=== PATIENT | female | born 1955 | race Caucasian/White ===

== ENCOUNTER 2018-12-25 17:29 | Emergency (ER) | payer OTHER, MEDICARE ==
[~2018-12-25] VITALS: Ht 157.5 cm; Wt 85.3 kg
[2018-12-25] MEDS ORDERED: SODIUM CHLORIDE 0.9% 1000ML 1,000 ML IV STA (17:36)
[2018-12-25 18:16] LABS: BASOPHILS % 0.5 % (0.0-1.0); BILIRUBIN,URINE NEGATIVE (NEGATIVE); CLARITY,URINE CLEAR (CLEAR); COLOR,URINE YELLOW (YELLOW); EOSINOPHILS # (AUTO) 0.2 (0.0-0.4); EOSINOPHILS % 2.8 % (0.0-6.0); HEMATOCRIT 34.5 % (34.2-44.1); HEMOGLOBIN 11.1 g/dL (12.0-16.0); KETONES,URINE NEGATIVE (NEGATIVE); LEUKOCYTE ESTERASE ,URINE SMALL (NEGATIVE); LYMPHOCYTES # (AUTO) 2.2 (1.0-3.2); LYMPHOCYTES % 29.1 % (18.0-39.1); MEAN CORPUSCULAR HEMOGLOBIN 28.4 pg (28-32); MEAN CORPUSCULAR HGB CONC 32.2 g/dL (31-35); MEAN CORPUSCULAR VOLUME 88.2 fL (81-99); MONOCYTES # (AUTO) 0.7 (0.2-0.8); MONOCYTES % 8.8 % (4.4-11.3); NEUTROPHILS # (AUTO) 4.3 (2.1-6.9); NEUTROPHILS % 58.4 % (38.7-80.0); NITRITE,URINE NEGATIVE (NEGATIVE); PLATELET COUNT 342 x10e3/uL (140-360); PROTEIN,URINE DIPSTICK NEGATIVE (NEGATIVE); RED BLOOD COUNT 3.91 x10e6/uL (3.6-5.1); RED CELL DISTRIBUTION WIDTH 13.7 % (11.7-14.4); URINE UROBILINOGEN 0.2 mg/dL (0.2 - 1)
[2018-12-25 18:20] LABS: AMPHETAMINES SCREEN,URINE NEGATIVE (NEGATIVE); BENZODIAZEPINES SCREEN,URINE POSITIVE (NEGATIVE); PHENCYCLIDINE SCREEN,URINE NEGATIVE (NEGATIVE)
[2018-12-25 18:34] LABS: ALANINE AMINOTRANSFERASE 14 IU/L (0-55); ALBUMIN 3.5 g/dL (3.5-5.0); ALBUMIN/GLOBULIN RATIO 0.8 (0.8-2.0); ALKALINE PHOSPHATASE 99 IU/L (40-150); ANION GAP 13.1 mmol/L (8-16); BACTERIA,URINE RARE /HPF; BLOOD UREA NITROGEN 15 mg/dL (7-26); BUN/CREATININE RATIO 17 (6-25); CALCIUM 9.2 mg/dL (8.4-10.2); CARBON DIOXIDE 28 mmol/L (22-29); CHLORIDE 101 mmol/L (98-107); CREATINE KINASE 44 IU/L (29-168); CREATININE, SERUM 0.87 mg/dL (0.57-1.11); EPITHELIAL CELLS,URINE FEW /LPF; EST GLOMERULAR FILTRATION RATE > 60 ML/MIN (60-); GLUCOSE 98 mg/dL (74-118); MAGNESIUM 1.6 MG/DL (1.3-2.1); POTASSIUM 4.1 mmol/L (3.5-5.1); RBC,URINE 0-5 /HPF (0-5); SODIUM 138 mmol/L (136-145)
--- NOTE | 2018-12-25 18:35 | Diagnostic Imaging Report ---
EXAMINATION: CHEST SINGLE (NOT PORTABLE) INDICATION: Chest pain ^Chest pain, look for CHF, enlarge Mediastinum ^[id number] ^[id number] COMPARISON: None FINDINGS: TUBES and LINES: None. LUNGS: Lungs are well inflated. Lungs are clear. There is no evidence of pneumonia or pulmonary edema. PLEURA: No pleural effusion or pneumothorax. HEART AND MEDIASTINUM: The cardiomediastinal silhouette is unremarkable. BONES AND SOFT TISSUES: No acute osseous lesion. Soft tissues are unremarkable. UPPER ABDOMEN: No free air under the diaphragm. IMPRESSION: No acute thoracic abnormality. Signed by: Dr. Mukund Broussard M.D. on 12/25/2018 6:32 PM
--- NOTE | 2018-12-25 20:08 | Diagnostic Imaging Report ---
Study made available for interpretation on 12/25/2018 at 8:00 PM. EXAMINATION: Head CT without contrast. HISTORY: Ear ringing, imbalance COMPARISON STUDIES:None Technique: Axial images were obtained from the skull base to the vertex. Coronal and sagittal images reconstructed from the axial data. Dose modulation, iterative reconstruction, and/or weight based adjustment of the mA/kV was utilized to reduce the radiation dose to as low as reasonably achievable. Findings: Scalp/skull: No abnormalities. Incidentally noted benign hemangioma in the right superior parietal bone. Extra-axial spaces: No masses. No fluid collections. Brain sulci: Mildly prominent. Ventricles: Mildly prominent but no hydrocephalus. Parenchyma: No abnormal densities.. No masses, hemorrhage, acute or chronic cortical vascular insults. Sellar/suprasellar region: No abnormalities. Craniocervical junction: Patent foramen magnum. No Chiari one malformation. Incidental findings: Atherosclerotic calcifications in the carotid siphons . Impression: 1. No acute abnormalities. 2. Mild age-related generalized volume loss. Signed by: Dr. Latrice Coronel M.D. on 12/25/2018 8:04 PM
[2018-12-25 20:24] LABS: ACETAMINOPHEN < 3 ug/mL (10-30); SALICYLATE < 5.0 mg/dL (0-30)
[2018-12-25 21:09] LABS: FREE THYROXINE INDEX 2.3842 (1.4-3.8); THYROID STIMULATING HORMONE 1.689 uIU/mL (0.350-4.940)
--- NOTE | 2018-12-25 21:26 | NUR ---
MAT TEAM CALLED - WAITING FOR CALL BACK
--- NOTE | 2018-12-25 22:03 | NUR ---
MAT TEAM CALLED BACK - ETA 45 MIN
--- NOTE | 2018-12-25 23:02 | NUR ---
MAT TEAM HERE FOR EVAL
[2018-12-25] MEDS ORDERED: NITROFURANTOIN MACROCRYSTALS 100 MG CAP PO ONE (23:30)
--- NOTE | 2018-12-26 01:58 | NUR ---
[facility] CALLED FOR INITIATION OF TRANSPORT. ETA 30-45 MINUTES.
[2018-12-26] MEDS ORDERED: IBUPROFEN 400 MG TAB PO ONE (03:00)
[2018-12-26] MEDS ORDERED: LORAZEPAM 1 MG TAB PO ONE (03:15)
== END 2018-12-26 04:56 ==
LOC: ER 17:29
DX: F32.3 Major depressive disorder, single episode, severe with psychotic features (principal); F13.151 Sedative, hypnotic or anxiolytic abuse with sedative, hypnotic or anxiolytic-induced psychotic disorder with hallucinations
CPT/HCPCS: 36415; 70450; 71045; 80053; 80307; 80320; 80329 ×2; 81001; 82550; 82553; 83735; 84436; 84443; 84479; 84484; 85025; 93005; 99284; J7030

== ENCOUNTER 2024-10-19 09:34 | Inpatient (IN) | payer MEDICARE, OTHER ==
[2024-10-19] VITALS (8 sets, daily range): BP systolic 115–131; BP diastolic 44–83; PULSE 57–79; RESP 16–18; TEMP 97.7–98.4; O2SAT 98–100
[~2024-10-19] VITALS: Ht 160 cm; Wt 75.8 kg
[2024-10-19 11:08] LABS: BASOPHILS # (AUTO) 0.1 (0.0-0.1); BASOPHILS % 0.4 % (0.0-1.0); EOSINOPHILS # (AUTO) 0.6 (0.0-0.4); HEMATOCRIT 29.2 % (34.2-44.1); HEMOGLOBIN 8.8 g/dL (12.0-16.0); LYMPHOCYTES # (AUTO) 1.3 (1.0-3.2); LYMPHOCYTES % 9.3 % (18.0-39.1); MEAN CORPUSCULAR HEMOGLOBIN 26.7 pg (28-32); MEAN CORPUSCULAR HGB CONC 30.1 g/dL (31-35); MEAN CORPUSCULAR VOLUME 88.5 fL (81-99); MONOCYTES # (AUTO) 1.4 (0.2-0.8); MONOCYTES % 10.1 % (4.4-11.3); NEUTROPHILS # (AUTO) 10.1 (2.1-6.9); NEUTROPHILS % 74.6 % (38.7-80.0); PLATELET COUNT 419 x10e3/uL (140-360); RED CELL DISTRIBUTION WIDTH 18.1 % (11.7-14.4); WHITE BLOOD COUNT 13.59 x10e3/uL (4.8-10.8)
[2024-10-19 11:14] LABS: AMPHETAMINES SCREEN,URINE NEGATIVE (NEGATIVE); BENZODIAZEPINES SCREEN,URINE NEGATIVE (NEGATIVE); CANNABINOIDS SCREEN,URINE NEGATIVE (NEGATIVE); COCAINE SCREEN,URINE NEGATIVE (NEGATIVE); OPIATES SCREEN,URINE NEGATIVE (NEGATIVE); PHENCYCLIDINE SCREEN,URINE NEGATIVE (NEGATIVE)
[2024-10-19 11:15] LABS: METHADONE SCREEN, URINE NEGATIVE (NEGATIVE)
[2024-10-19 11:24] LABS: BACTERIA,URINE MODERATE /HPF; BILIRUBIN,URINE NEGATIVE (NEGATIVE); CLARITY,URINE TURBID (CLEAR); COLOR,URINE YELLOW (YELLOW); EPITHELIAL CELLS,URINE FEW /LPF; GLUCOSE, URINE NEGATIVE (NEGATIVE); KETONES,URINE NEGATIVE (NEGATIVE); LEUKOCYTE ESTERASE ,URINE LARGE (NEGATIVE); NITRITE,URINE NEGATIVE (NEGATIVE); PH,URINE 7 (5 - 7); PROTEIN,URINE DIPSTICK 2+ (NEGATIVE); RBC,URINE >50 /HPF (0-5); URINE UROBILINOGEN 0.2 mg/dL (0.2 - 1); WBC,URINE (MAN) >50 /HPF (0-5)
[2024-10-19 11:28] LABS: ALBUMIN 2.3 g/dL (3.5-5.0); ALBUMIN/GLOBULIN RATIO 0.5 (0.8-2.0); ANION GAP 15.4 mmol/L (8-16); BILIRUBIN,TOTAL 0.2 mg/dL (0.2-1.2); CALCIUM 8.8 mg/dL (8.4-10.2); CREATININE, SERUM 2.6 mg/dL (0.57-1.11)
[2024-10-19 11:29] LABS: POTASSIUM 5.4 mmol/L (3.5-5.1)
[2024-10-19] MEDS: SODIUM CHLORIDE 0.9% 500ML 500 ML IV ONE (11:53)
[2024-10-19] MEDS: Vancomycin IV 1 GM in SODIUM CHLORIDE 0.9% 250ML 250 ML IV ONE (13:11)
[2024-10-19] MEDS ORDERED: SODIUM CHLORIDE 0.9% 1000ML 1,000 ML IV SCH (13:15)
[2024-10-19 13:33] LABS: TROPONIN I 0.011 ng/mL (0-0.300)
[2024-10-19] MEDS ORDERED: OMEPRAZOLE40 MG PO (16:30)
[2024-10-19] MEDS ORDERED: POLYETHYLENE GLYCOL 3350 17 GM PACK PO PRN (16:30)
[2024-10-19] MEDS ORDERED: METOPROLOL TAR100 MG PO (16:30)
[2024-10-19] MEDS ORDERED: LOSARTAN POTASS25 MG PO (16:30)
[2024-10-19] MEDS ORDERED: NAPROSYN500 MG PO (16:30)
[2024-10-19] MEDS ORDERED: NEURONTIN300 MG PO (16:30)
[2024-10-19] MEDS ORDERED: ASPIRIN81 MG PO (16:30)
[2024-10-19] MEDS ORDERED: RISPERIDONE0.5 MG PO (16:30)
[2024-10-19] MEDS: DOCUSATE SODIUM 100 MG CAP PO SCH (17:08)
[2024-10-19] MEDS: SODIUM BICARBONATE 8.4% VIAL 50 ML in SODIUM CHLORIDE 0.45% 1,000 ML IV SCH (17:40)
[2024-10-19] MEDS ORDERED: KETOCONAZOLE15 GM TOP (17:53)
[2024-10-19] MEDS ORDERED: TRIAMCINOLONE A15 G1 TOP (17:53)
[2024-10-19] MEDS ORDERED: ALCLOMETASONE D15 GM TOP (17:53)
[2024-10-19 20:42] LABS: ABG HCO3 18 mmol/L (22-26); ABG PCO2 34 mmHg (35-45); ABG PH 7.32 (7.35-7.45); ABG PO2 147 mmHg (80-105); ABG TCO2 19
[2024-10-19] MEDS: ACETAMINOPHEN 325 MG TAB PO PRN (23:14)
[2024-10-20] VITALS (10 sets, daily range): BP systolic 112–141; BP diastolic 42–58; PULSE 71–79; RESP 15–18; TEMP 98–98.6; O2SAT 96–100
[2024-10-20 06:57] LABS: BASOPHILS % 0.4 % (0.0-1.0); EOSINOPHILS # (AUTO) 0.5 (0.0-0.4); EOSINOPHILS % 4.8 % (0.0-6.0); HEMOGLOBIN 7.7 g/dL (12.0-16.0); LYMPHOCYTES # (AUTO) 1.5 (1.0-3.2); LYMPHOCYTES % 14.8 % (18.0-39.1); MEAN CORPUSCULAR HEMOGLOBIN 26.9 pg (28-32); MEAN CORPUSCULAR HGB CONC 30.8 g/dL (31-35); MEAN CORPUSCULAR VOLUME 87.4 fL (81-99); MONOCYTES # (AUTO) 1.2 (0.2-0.8); MONOCYTES % 11.4 % (4.4-11.3); NEUTROPHILS # (AUTO) 6.8 (2.1-6.9); NEUTROPHILS % 67.4 % (38.7-80.0); PLATELET COUNT 435 x10e3/uL (140-360); RED BLOOD COUNT 2.86 x10e6/uL (3.6-5.1); WHITE BLOOD COUNT 10.08 x10e3/uL (4.8-10.8)
[2024-10-20 07:30] LABS: CHOL/HDL RATIO 3.4 (3.0-3.6)
[2024-10-20 07:32] LABS: ALBUMIN 1.9 g/dL (3.5-5.0); ALBUMIN/GLOBULIN RATIO 0.5 (0.8-2.0); ANION GAP 13.4 mmol/L (8-16); BILIRUBIN,TOTAL 0.2 mg/dL (0.2-1.2); CREATININE, SERUM 2.05 mg/dL (0.57-1.11); TOTAL PROTEIN 5.9 g/dL (6.5-8.1)
[2024-10-20 07:42] LABS: POTASSIUM 5.4 mmol/L (3.5-5.1)
[2024-10-20 07:53] LABS: FREE T4 (FREE THYROXINE) 0.98 ng/dL (0.8-1.8); THYROID STIMULATING HORMONE 3.995 uIU/mL (0.350-4.940)
[2024-10-20 07:54] LABS: FERRITIN 52.89 ng/mL (4.63-204.00)
[2024-10-20] MEDS: KETOCONAZOLE 2% CREAM/15 GM TUBE TOP SCH (09:00)
[2024-10-20] MEDS: ASPIRIN 81 MG CHEW TAB PO SCH (09:05)
[2024-10-20] MEDS: PANTOPRAZOLE SOD 40 MG TABEC PO SCH (09:06)
[2024-10-20] MEDS: TRIAMCINOLONE ACET 0.1% CREAM 15 GM TUBE TOP SCH (09:23)
[2024-10-20] MEDS: ONDANSETRON HCL INJ 2MG/ML 2ML 2 MG/ML VIAL IV PRN (11:28)
[2024-10-20] MEDS: METOPROLOL TARTRATE 50 MG TAB PO SCH (11:29)
[2024-10-20] MEDS: RISPERIDONE 0.5 MG TAB PO SCH (20:32)
[2024-10-21] VITALS (11 sets, daily range): BP systolic 136–149; BP diastolic 54–76; PULSE 75–85; RESP 16–18; TEMP 97.9–98.4; O2SAT 94–98
[2024-10-21] MEDS ORDERED: SODIUM BICARBONATE 8.4% VIAL 50 ML in SODIUM CHLORIDE 0.45% 1,000 ML IV SCH (07:30)
[2024-10-21 07:39] LABS: ANION GAP 15.9 mmol/L (8-16); CALCIUM 8.3 mg/dL (8.4-10.2); CREATININE, SERUM 1.88 mg/dL (0.57-1.11); POTASSIUM 4.9 mmol/L (3.5-5.1)
[2024-10-21] MEDS: SODIUM BICARBONATE 8.4% VIAL 50 ML in SODIUM CHLORIDE 0.45% 1,000 ML IV SCH (10:31)
[2024-10-21 11:31] LABS: ABG HCO3 18 mmol/L (22-26); ABG PCO2 34 mmHg (35-45); ABG PH 7.32 (7.35-7.45); ABG PO2 147 mmHg (80-105); ABG TCO2 19
[2024-10-22] VITALS (10 sets, daily range): BP systolic 111–183; BP diastolic 53–82; PULSE 63–130; RESP 16–20; TEMP 97.8–98.5; O2SAT 96–100
[2024-10-22] MEDS: LACTATED RINGER'S 1,000 ML INJ SCH (04:01)
[2024-10-22 08:12] LABS: BASOPHILS # (AUTO) 0.1 (0.0-0.1); BASOPHILS % 0.5 % (0.0-1.0); EOSINOPHILS # (AUTO) 0.2 (0.0-0.4); EOSINOPHILS % 2.1 % (0.0-6.0); HEMATOCRIT 27.1 % (34.2-44.1); HEMOGLOBIN 8.2 g/dL (12.0-16.0); LYMPHOCYTES # (AUTO) 1.1 (1.0-3.2); LYMPHOCYTES % 10.4 % (18.0-39.1); MEAN CORPUSCULAR HEMOGLOBIN 26.6 pg (28-32); MEAN CORPUSCULAR HGB CONC 30.3 g/dL (31-35); MONOCYTES # (AUTO) 0.8 (0.2-0.8); MONOCYTES % 7.3 % (4.4-11.3); NEUTROPHILS # (AUTO) 8.4 (2.1-6.9); NEUTROPHILS % 78.7 % (38.7-80.0); PLATELET COUNT 377 x10e3/uL (140-360); RED BLOOD COUNT 3.08 x10e6/uL (3.6-5.1); RED CELL DISTRIBUTION WIDTH 17.7 % (11.7-14.4); WHITE BLOOD COUNT 10.72 x10e3/uL (4.8-10.8)
[2024-10-22 08:41] LABS: ANION GAP 18.5 mmol/L (8-16); CALCIUM 8.1 mg/dL (8.4-10.2); CREATININE, SERUM 1.7 mg/dL (0.57-1.11); POTASSIUM 4.5 mmol/L (3.5-5.1)
[2024-10-22] MEDS: FOLIC ACID 1 MG TAB PO SCH (08:51)
[2024-10-22] MEDS: IRON SUCROSE 100 MG in SODIUM CHLORIDE 0.9% 100 ML IV SCH (08:52)
[2024-10-22] MEDS: SODIUM BICARBONATE 650 MG TAB PO SCH (14:22)
[2024-10-22] MEDS: HYDRALAZINE HCL 20 MG/ML VIAL IV PRN (23:14)
[2024-10-23] VITALS (9 sets, daily range): BP systolic 118–142; BP diastolic 47–57; PULSE 90–135; RESP 16–20; TEMP 97.4–98.9; O2SAT 93–100
[2024-10-23 06:24] LABS: BASOPHILS # (AUTO) 0.1 (0.0-0.1); BASOPHILS % 0.4 % (0.0-1.0); EOSINOPHILS % 0.2 % (0.0-6.0); HEMATOCRIT 24.4 % (34.2-44.1); LYMPHOCYTES # (AUTO) 0.7 (1.0-3.2); LYMPHOCYTES % 4.9 % (18.0-39.1); MEAN CORPUSCULAR HEMOGLOBIN 27.1 pg (28-32); MEAN CORPUSCULAR HGB CONC 31.1 g/dL (31-35); MEAN CORPUSCULAR VOLUME 87.1 fL (81-99); MONOCYTES # (AUTO) 0.9 (0.2-0.8); MONOCYTES % 6.4 % (4.4-11.3); NEUTROPHILS # (AUTO) 12.4 (2.1-6.9); NEUTROPHILS % 86.6 % (38.7-80.0); PLATELET COUNT 363 x10e3/uL (140-360); RED CELL DISTRIBUTION WIDTH 17.9 % (11.7-14.4); WHITE BLOOD COUNT 14.33 x10e3/uL (4.8-10.8)
[2024-10-23 06:28] LABS: HEMOGLOBIN 7.6 g/dL (12.0-16.0)
[2024-10-23 06:34] LABS: ANION GAP 20.2 mmol/L (8-16); CALCIUM 7.9 mg/dL (8.4-10.2); CREATININE, SERUM 1.67 mg/dL (0.57-1.11); POTASSIUM 4.2 mmol/L (3.5-5.1)
[2024-10-23] MEDS: SODIUM BICARBONATE 8.4% VIAL 150 ML in DEXTROSE 5% 1,000 ML IV SCH (20:41)
[2024-10-24] VITALS (10 sets, daily range): BP systolic 107–141; BP diastolic 48–67; PULSE 86–128; RESP 17–20; TEMP 97.2–98.4; O2SAT 94–100
[2024-10-24 06:20] LABS: BASOPHILS % 0.3 % (0.0-1.0); EOSINOPHILS # (AUTO) 0.3 (0.0-0.4); EOSINOPHILS % 2.8 % (0.0-6.0); HEMATOCRIT 22.9 % (34.2-44.1); LYMPHOCYTES % 8.6 % (18.0-39.1); MEAN CORPUSCULAR HEMOGLOBIN 27.3 pg (28-32); MEAN CORPUSCULAR HGB CONC 31.4 g/dL (31-35); MEAN CORPUSCULAR VOLUME 86.7 fL (81-99); MONOCYTES # (AUTO) 1.1 (0.2-0.8); MONOCYTES % 9.3 % (4.4-11.3); NEUTROPHILS % 77.9 % (38.7-80.0); PLATELET COUNT 396 x10e3/uL (140-360); RED BLOOD COUNT 2.64 x10e6/uL (3.6-5.1); RED CELL DISTRIBUTION WIDTH 18.2 % (11.7-14.4)
[2024-10-24 06:26] LABS: HEMOGLOBIN 7.2 g/dL (12.0-16.0)
[2024-10-24 06:33] LABS: ANION GAP 12.2 mmol/L (8-16); CALCIUM 7.5 mg/dL (8.4-10.2); CREATININE, SERUM 1.65 mg/dL (0.57-1.11)
[2024-10-24 06:37] LABS: POTASSIUM 3.2 mmol/L (3.5-5.1)
[2024-10-24] MEDS: POTASSIUM CHLORIDE 10MEQ EA PO STA (22:18)
[2024-10-25] MEDS: SODIUM CHLORIDE 0.9% 250ML 250 ML ONE (00:02)
[2024-10-25 03:23] VITALS: BP 141/65; PULSE 98; RESP 18; TEMP 97.5; O2SAT 96
[2024-10-25 05:34] LABS: BASOPHILS # (AUTO) 0.1 (0.0-0.1); BASOPHILS % 0.6 % (0.0-1.0); EOSINOPHILS # (AUTO) 0.3 (0.0-0.4); EOSINOPHILS % 2.3 % (0.0-6.0); HEMATOCRIT 25.7 % (34.2-44.1); LYMPHOCYTES # (AUTO) 1.1 (1.0-3.2); LYMPHOCYTES % 8.7 % (18.0-39.1); MEAN CORPUSCULAR HEMOGLOBIN 26.9 pg (28-32); MEAN CORPUSCULAR HGB CONC 31.1 g/dL (31-35); MEAN CORPUSCULAR VOLUME 86.5 fL (81-99); MONOCYTES # (AUTO) 1.1 (0.2-0.8); MONOCYTES % 8.6 % (4.4-11.3); NEUTROPHILS # (AUTO) 9.6 (2.1-6.9); NEUTROPHILS % 77.9 % (38.7-80.0); PLATELET COUNT 340 x10e3/uL (140-360); RED BLOOD COUNT 2.97 x10e6/uL (3.6-5.1); RED CELL DISTRIBUTION WIDTH 18.6 % (11.7-14.4); WHITE BLOOD COUNT 12.35 x10e3/uL (4.8-10.8)
[2024-10-25 06:15] LABS: ANION GAP 15.5 mmol/L (8-16); CALCIUM 7.7 mg/dL (8.4-10.2); CREATININE, SERUM 1.46 mg/dL (0.57-1.11); POTASSIUM 3.5 mmol/L (3.5-5.1)
[2024-10-25] MEDS ORDERED: PROPOFOL IV EMULSION 10 MG/ML 20 ML VIAL ONE (07:38)
[2024-10-25] MEDS ORDERED: FENTANYL CITRATE/PF 100MCG/2 ML INJ ONE (07:39)
[2024-10-25] MEDS ORDERED: LIDOCAINE HCL 2% LOCAL INJ 5 ML SDV VIAL INJ ONE (07:58)
[2024-10-25] MEDS ORDERED: ONDANSETRON HCL INJ 2MG/ML 2ML 2 MG/ML VIAL ONE (07:58)
[2024-10-25 08:00] VITALS: BP 141/65; PULSE 98; RESP 18; TEMP 97.5; O2SAT 96
[2024-10-25] MEDS ORDERED: LABETALOL HCL 20 ML ONE (08:07)
[2024-10-25 11:51] VITALS: BP 150/59; PULSE 107; RESP 19; TEMP 97.7; O2SAT 100
[2024-10-25] MEDS: TRAMADOL HCL 50 MG TAB PO PRN (15:27)
[2024-10-25 16:05] VITALS: BP 134/50; PULSE 83; RESP 19; TEMP 98.1; O2SAT 100
[2024-10-25] MEDS: GABAPENTIN 300 MG CAP PO SCH (18:51)
[2024-10-25] MEDS: LOSARTAN POTASSIUM 25 MG TAB PO SCH (18:51)
[2024-10-25 20:00] VITALS: BP 95/42; PULSE 92; RESP 18; TEMP 98.9; O2SAT 100
[2024-10-25 21:00] VITALS: BP 92/42; PULSE 92; RESP 18; TEMP 98.9; O2SAT 100
[2024-10-25] MEDS: METOPROLOL TARTRATE 50 MG TAB PO SCH (21:00)
[2024-10-26] VITALS (10 sets, daily range): BP systolic 83–118; BP diastolic 38–51; PULSE 69–101; RESP 16–19; TEMP 97.1–98.7; O2SAT 94–100
[2024-10-26 07:15] LABS: ANION GAP 12.8 mmol/L (8-16); CALCIUM 7.1 mg/dL (8.4-10.2); CREATININE, SERUM 2.3 mg/dL (0.57-1.11); POTASSIUM 3.8 mmol/L (3.5-5.1)
[2024-10-26] MEDS: SODIUM CHLORIDE 0.9% 1000ML 1,000 ML IV SCH (11:30)
[2024-10-26 12:42] LABS: BASOPHILS # (AUTO) 0.1 (0.0-0.1); BASOPHILS % 0.6 % (0.0-1.0); EOSINOPHILS # (AUTO) 0.4 (0.0-0.4); EOSINOPHILS % 2.2 % (0.0-6.0); HEMATOCRIT 26.8 % (34.2-44.1); LYMPHOCYTES # (AUTO) 1.3 (1.0-3.2); LYMPHOCYTES % 7.6 % (18.0-39.1); MEAN CORPUSCULAR HEMOGLOBIN 26.7 pg (28-32); MEAN CORPUSCULAR HGB CONC 29.9 g/dL (31-35); MEAN CORPUSCULAR VOLUME 89.3 fL (81-99); MONOCYTES # (AUTO) 1.1 (0.2-0.8); MONOCYTES % 6.4 % (4.4-11.3); NEUTROPHILS % 78.6 % (38.7-80.0); PLATELET COUNT 376 x10e3/uL (140-360); RED CELL DISTRIBUTION WIDTH 19.1 % (11.7-14.4); WHITE BLOOD COUNT 16.48 x10e3/uL (4.8-10.8)
[2024-10-26] MEDS: SODIUM CHLORIDE 0.9% 1000ML 2,000 ML IV SCH (17:58)
[2024-10-27] VITALS (10 sets, daily range): BP systolic 98–132; BP diastolic 41–65; PULSE 69–118; RESP 16–20; TEMP 98–98.9; O2SAT 91–100
[2024-10-27 07:34] LABS: ANION GAP 12.8 mmol/L (8-16); CREATININE, SERUM 2.75 mg/dL (0.57-1.11); POTASSIUM 3.8 mmol/L (3.5-5.1)
[2024-10-27 07:37] LABS: CALCIUM 6.9 mg/dL (8.4-10.2)
[2024-10-27 08:06] LABS: BASOPHILS # (AUTO) 0.1 (0.0-0.1); BASOPHILS % 0.7 % (0.0-1.0); EOSINOPHILS # (AUTO) 0.5 (0.0-0.4); EOSINOPHILS % 2.5 % (0.0-6.0); LYMPHOCYTES # (AUTO) 1.2 (1.0-3.2); LYMPHOCYTES % 6.7 % (18.0-39.1); MEAN CORPUSCULAR HEMOGLOBIN 27.3 pg (28-32); MEAN CORPUSCULAR HGB CONC 29.4 g/dL (31-35); MEAN CORPUSCULAR VOLUME 93.1 fL (81-99); MONOCYTES # (AUTO) 1.3 (0.2-0.8); MONOCYTES % 7.5 % (4.4-11.3); NEUTROPHILS # (AUTO) 13.9 (2.1-6.9); PLATELET COUNT 425 x10e3/uL (140-360); RED BLOOD COUNT 2.45 x10e6/uL (3.6-5.1); RED CELL DISTRIBUTION WIDTH 19.6 % (11.7-14.4); WHITE BLOOD COUNT 17.87 x10e3/uL (4.8-10.8)
[2024-10-27 08:09] LABS: HEMATOCRIT 22.8 % (34.2-44.1); HEMOGLOBIN 6.7 g/dL (12.0-16.0)
[2024-10-27] MEDS: METOPROLOL TARTRATE 50 MG TAB PO SCH (08:27)
[2024-10-27] MEDS: SODIUM CHLORIDE 0.9% 1000ML 1,000 ML IV SCH (16:46)
[2024-10-27] MEDS: SODIUM CHLORIDE 0.9% 250ML 250 ML IV ONE (23:41)
[2024-10-27] MEDS: SODIUM CHLORIDE 0.9% 250ML 250 ML ONE (23:42)
[2024-10-28] VITALS (7 sets, daily range): BP systolic 95–135; BP diastolic 43–59; PULSE 78–92; RESP 15–21; TEMP 97.5–98.6; O2SAT 93–98
[2024-10-28 06:04] LABS: BASOPHILS # (AUTO) 0.1 (0.0-0.1); BASOPHILS % 0.5 % (0.0-1.0); EOSINOPHILS # (AUTO) 0.6 (0.0-0.4); EOSINOPHILS % 3.6 % (0.0-6.0); HEMATOCRIT 25.6 % (34.2-44.1); HEMOGLOBIN 7.9 g/dL (12.0-16.0); LYMPHOCYTES # (AUTO) 1.1 (1.0-3.2); LYMPHOCYTES % 6.6 % (18.0-39.1); MEAN CORPUSCULAR HEMOGLOBIN 27.4 pg (28-32); MEAN CORPUSCULAR HGB CONC 30.9 g/dL (31-35); MEAN CORPUSCULAR VOLUME 88.9 fL (81-99); MONOCYTES # (AUTO) 1.4 (0.2-0.8); MONOCYTES % 8.4 % (4.4-11.3); NEUTROPHILS # (AUTO) 12.6 (2.1-6.9); NEUTROPHILS % 76.6 % (38.7-80.0); PLATELET COUNT 446 x10e3/uL (140-360); RED BLOOD COUNT 2.88 x10e6/uL (3.6-5.1); RED CELL DISTRIBUTION WIDTH 18.9 % (11.7-14.4); WHITE BLOOD COUNT 16.46 x10e3/uL (4.8-10.8)
[2024-10-28 06:29] LABS: ANION GAP 14.3 mmol/L (8-16); CREATININE, SERUM 2.12 mg/dL (0.57-1.11)
[2024-10-28 06:48] LABS: POTASSIUM 3.3 mmol/L (3.5-5.1)
[2024-10-28 06:49] LABS: CALCIUM 6.7 mg/dL (8.4-10.2)
[2024-10-28] MEDS: IRON-VITAMIN-MINERAL CAPSULE PO SCH (09:16)
[2024-10-28] MEDS: CALCIUM CARBONATE 500 MG CHEWABLE TABS PO ONE (17:18)
[2024-10-29] VITALS (8 sets, daily range): BP systolic 100–143; BP diastolic 48–68; PULSE 76–120; RESP 16–20; TEMP 97.7–98.5; O2SAT 95–100
[2024-10-29 06:03] LABS: BASOPHILS # (AUTO) 0.1 (0.0-0.1); BASOPHILS % 0.5 % (0.0-1.0); EOSINOPHILS # (AUTO) 0.5 (0.0-0.4); EOSINOPHILS % 3.3 % (0.0-6.0); HEMATOCRIT 26.8 % (34.2-44.1); HEMOGLOBIN 8.3 g/dL (12.0-16.0); LYMPHOCYTES # (AUTO) 1.1 (1.0-3.2); LYMPHOCYTES % 6.9 % (18.0-39.1); MEAN CORPUSCULAR HEMOGLOBIN 27.6 pg (28-32); MONOCYTES # (AUTO) 1.5 (0.2-0.8); MONOCYTES % 9.4 % (4.4-11.3); NEUTROPHILS # (AUTO) 12.6 (2.1-6.9); NEUTROPHILS % 77.3 % (38.7-80.0); PLATELET COUNT 421 x10e3/uL (140-360); RED BLOOD COUNT 3.01 x10e6/uL (3.6-5.1); RED CELL DISTRIBUTION WIDTH 19.4 % (11.7-14.4); WHITE BLOOD COUNT 16.34 x10e3/uL (4.8-10.8)
[2024-10-29 06:40] LABS: ANION GAP 11.2 mmol/L (8-16); CREATININE, SERUM 1.46 mg/dL (0.57-1.11)
[2024-10-29 06:41] LABS: POTASSIUM 3.2 mmol/L (3.5-5.1)
[2024-10-29] MEDS: CALCIUM CARBONATE 500 MG CHEWABLE TABS PO SCH ×2 (08:43→09:45)
[2024-10-30] VITALS (8 sets, daily range): BP systolic 125–148; BP diastolic 58–63; PULSE 81–93; RESP 16–18; TEMP 97.5–98.8; O2SAT 95–100
[2024-10-30 06:43] LABS: ANION GAP 11.1 mmol/L (8-16); CALCIUM 7.2 mg/dL (8.4-10.2); CREATININE, SERUM 1.18 mg/dL (0.57-1.11)
[2024-10-30 06:50] LABS: POTASSIUM 3.1 mmol/L (3.5-5.1)
[2024-10-30 10:04] LABS: BASOPHILS # (AUTO) 0.1 (0.0-0.1); BASOPHILS % 0.6 % (0.0-1.0); EOSINOPHILS # (AUTO) 0.6 (0.0-0.4); EOSINOPHILS % 4.9 % (0.0-6.0); HEMATOCRIT 26.5 % (34.2-44.1); HEMOGLOBIN 8.2 g/dL (12.0-16.0); LYMPHOCYTES # (AUTO) 1.2 (1.0-3.2); LYMPHOCYTES % 9.8 % (18.0-39.1); MEAN CORPUSCULAR HEMOGLOBIN 28.1 pg (28-32); MEAN CORPUSCULAR HGB CONC 30.9 g/dL (31-35); MEAN CORPUSCULAR VOLUME 90.8 fL (81-99); MONOCYTES # (AUTO) 1.5 (0.2-0.8); MONOCYTES % 12.1 % (4.4-11.3); NEUTROPHILS # (AUTO) 8.7 (2.1-6.9); NEUTROPHILS % 70.4 % (38.7-80.0); PLATELET COUNT 446 x10e3/uL (140-360); RED BLOOD COUNT 2.92 x10e6/uL (3.6-5.1); RED CELL DISTRIBUTION WIDTH 20.3 % (11.7-14.4); WHITE BLOOD COUNT 12.35 x10e3/uL (4.8-10.8)
[2024-10-30] MEDS: POTASSIUM CHLORIDE 20MEQ/100ML 100 ML IV SCH (17:28)
[2024-10-30] MEDS: CALCIUM CARBONATE 500 MG CHEWABLE TABS PO SCH (21:53)
[2024-10-31] VITALS (7 sets, daily range): BP systolic 135–154; BP diastolic 52–83; PULSE 88–104; RESP 18–20; TEMP 97.5–98.4; O2SAT 97–100
[2024-10-31 05:46] LABS: BASOPHILS # (AUTO) 0.1 (0.0-0.1); BASOPHILS % 0.8 % (0.0-1.0); EOSINOPHILS # (AUTO) 0.6 (0.0-0.4); EOSINOPHILS % 5.3 % (0.0-6.0); HEMOGLOBIN 8.7 g/dL (12.0-16.0); LYMPHOCYTES # (AUTO) 1.3 (1.0-3.2); LYMPHOCYTES % 11.1 % (18.0-39.1); MEAN CORPUSCULAR HEMOGLOBIN 27.7 pg (28-32); MEAN CORPUSCULAR HGB CONC 31.1 g/dL (31-35); MEAN CORPUSCULAR VOLUME 89.2 fL (81-99); MONOCYTES # (AUTO) 1.9 (0.2-0.8); MONOCYTES % 16.1 % (4.4-11.3); NEUTROPHILS # (AUTO) 7.5 (2.1-6.9); NEUTROPHILS % 64.9 % (38.7-80.0); PLATELET COUNT 525 x10e3/uL (140-360); RED BLOOD COUNT 3.14 x10e6/uL (3.6-5.1); RED CELL DISTRIBUTION WIDTH 20.3 % (11.7-14.4); WHITE BLOOD COUNT 11.52 x10e3/uL (4.8-10.8)
[2024-10-31 06:09] LABS: ANION GAP 13.4 mmol/L (8-16); CALCIUM 7.6 mg/dL (8.4-10.2); CREATININE, SERUM 1.04 mg/dL (0.57-1.11)
[2024-10-31 06:14] LABS: POTASSIUM 3.4 mmol/L (3.5-5.1)
[2024-10-31] MEDS: POTASSIUM CHLORIDE 20 MEQ TAB CR PO ONE (16:45)
[2024-11-01] VITALS (7 sets, daily range): BP systolic 121–157; BP diastolic 55–76; PULSE 89–119; RESP 18–20; TEMP 97.7–98.8; O2SAT 97–100
[2024-11-01 13:32] LABS: BASOPHILS # (AUTO) 0.1 (0.0-0.1); BASOPHILS % 0.7 % (0.0-1.0); EOSINOPHILS # (AUTO) 0.4 (0.0-0.4); EOSINOPHILS % 3.9 % (0.0-6.0); HEMATOCRIT 25.6 % (34.2-44.1); HEMOGLOBIN 8.1 g/dL (12.0-16.0); LYMPHOCYTES # (AUTO) 1.1 (1.0-3.2); MEAN CORPUSCULAR HEMOGLOBIN 27.6 pg (28-32); MEAN CORPUSCULAR HGB CONC 31.6 g/dL (31-35); MEAN CORPUSCULAR VOLUME 87.4 fL (81-99); MONOCYTES % 17.5 % (4.4-11.3); NEUTROPHILS # (AUTO) 7.6 (2.1-6.9); NEUTROPHILS % 66.5 % (38.7-80.0); PLATELET COUNT 457 x10e3/uL (140-360); RED BLOOD COUNT 2.93 x10e6/uL (3.6-5.1); RED CELL DISTRIBUTION WIDTH 20.9 % (11.7-14.4)
[2024-11-02] VITALS (7 sets, daily range): BP systolic 123–152; BP diastolic 56–63; PULSE 82–111; RESP 15–17; TEMP 97.4–98.8; O2SAT 97–100
[2024-11-02 05:52] LABS: ANION GAP 11.4 mmol/L (8-16); CALCIUM 7.6 mg/dL (8.4-10.2); CREATININE, SERUM 0.87 mg/dL (0.57-1.11)
[2024-11-02 05:57] LABS: POTASSIUM 3.4 mmol/L (3.5-5.1)
[2024-11-02 10:57] LABS: PHOSPHORUS 1.8 MG/DL (2.3-4.7)
[2024-11-02 10:58] LABS: MAGNESIUM 1.1 MG/DL (1.3-2.1)
[2024-11-02] MEDS: MAGNESIUM SULFATE 2GM/50ML 50 ML IV ONE ×2 (12:06→14:09)
[2024-11-03] VITALS (7 sets, daily range): BP systolic 135–181; BP diastolic 56–71; PULSE 50–105; RESP 17–20; TEMP 98–99; O2SAT 97–100
[2024-11-03 05:38] LABS: BASOPHILS # (AUTO) 0.1 (0.0-0.1); BASOPHILS % 0.6 % (0.0-1.0); EOSINOPHILS # (AUTO) 0.6 (0.0-0.4); HEMATOCRIT 26.3 % (34.2-44.1); HEMOGLOBIN 8.2 g/dL (12.0-16.0); LYMPHOCYTES % 10.1 % (18.0-39.1); MEAN CORPUSCULAR HEMOGLOBIN 28.1 pg (28-32); MEAN CORPUSCULAR HGB CONC 31.2 g/dL (31-35); MEAN CORPUSCULAR VOLUME 90.1 fL (81-99); MONOCYTES # (AUTO) 1.6 (0.2-0.8); MONOCYTES % 15.7 % (4.4-11.3); NEUTROPHILS # (AUTO) 6.7 (2.1-6.9); NEUTROPHILS % 66.2 % (38.7-80.0); PLATELET COUNT 503 x10e3/uL (140-360); RED BLOOD COUNT 2.92 x10e6/uL (3.6-5.1); RED CELL DISTRIBUTION WIDTH 20.7 % (11.7-14.4); WHITE BLOOD COUNT 10.05 x10e3/uL (4.8-10.8)
[2024-11-03 06:05] LABS: ANION GAP 12.3 mmol/L (8-16); CALCIUM 7.7 mg/dL (8.4-10.2); CREATININE, SERUM 0.87 mg/dL (0.57-1.11); MAGNESIUM 1.6 MG/DL (1.3-2.1); PHOSPHORUS 2.1 MG/DL (2.3-4.7)
[2024-11-03 06:10] LABS: POTASSIUM 3.3 mmol/L (3.5-5.1)
[2024-11-03] MEDS: MAGNESIUM SULFATE 2GM/50ML 50 ML IV ONE (10:06)
[2024-11-03] MEDS ORDERED: POTASSIUM PHOSPHATE 15 MM in SODIUM CHLORIDE 0.9% 250ML 250 ML IV SCH (10:30)
[2024-11-03] MEDS: POTASSIUM PHOSPHATE 15 MM in SODIUM CHLORIDE 0.9% 250ML 250 ML IV SCH ×2 (11:30→17:26)
[2024-11-03] MEDS: POTASSIUM CHLORIDE 10MEQ EA PO ONE (11:41)
[2024-11-04] VITALS (9 sets, daily range): BP systolic 144–172; BP diastolic 56–78; PULSE 93–110; RESP 16–20; TEMP 97.5–98.6; O2SAT 96–100
[2024-11-04 06:59] LABS: BASOPHILS # (AUTO) 0.1 (0.0-0.1); BASOPHILS % 0.7 % (0.0-1.0); EOSINOPHILS # (AUTO) 0.6 (0.0-0.4); EOSINOPHILS % 6.4 % (0.0-6.0); HEMATOCRIT 28.9 % (34.2-44.1); HEMOGLOBIN 9.1 g/dL (12.0-16.0); LYMPHOCYTES # (AUTO) 1.1 (1.0-3.2); LYMPHOCYTES % 11.2 % (18.0-39.1); MEAN CORPUSCULAR HEMOGLOBIN 27.7 pg (28-32); MEAN CORPUSCULAR HGB CONC 31.5 g/dL (31-35); MEAN CORPUSCULAR VOLUME 88.1 fL (81-99); MONOCYTES # (AUTO) 1.3 (0.2-0.8); MONOCYTES % 13.9 % (4.4-11.3); NEUTROPHILS # (AUTO) 6.4 (2.1-6.9); NEUTROPHILS % 66.9 % (38.7-80.0); PLATELET COUNT 595 x10e3/uL (140-360); RED BLOOD COUNT 3.28 x10e6/uL (3.6-5.1); RED CELL DISTRIBUTION WIDTH 20.7 % (11.7-14.4); WHITE BLOOD COUNT 9.56 x10e3/uL (4.8-10.8)
[2024-11-04 07:50] LABS: CALCIUM 8.2 mg/dL (8.4-10.2); CREATININE, SERUM 0.83 mg/dL (0.57-1.11); MAGNESIUM 1.9 MG/DL (1.3-2.1); PHOSPHORUS 2.8 MG/DL (2.3-4.7)
[2024-11-05 03:30] VITALS: BP 158/78; PULSE 116; RESP 18; TEMP 97.7; O2SAT 96
[2024-11-05 07:34] VITALS: BP 172/73; PULSE 119; RESP 17; TEMP 97.3; O2SAT 97
[2024-11-05] MEDS ORDERED: LABETALOL HCL 5 MG/ML 20ML VIAL IV PRN (08:45)
[2024-11-05] MEDS ORDERED: LOSARTAN POTASSIUM 25 MG TAB PO SCH (09:00)
[2024-11-05] MEDS: LOSARTAN POTASSIUM 25 MG TAB PO SCH (09:00)
[2024-11-05 10:00] VITALS: BP 144/75; PULSE 91; RESP 17; TEMP 97.3; O2SAT 97
[2024-11-05] MEDS ORDERED: FOLIC ACID0.8 MG PO (11:06)
[2024-11-05] MEDS ORDERED: IRON 100 PLUS1 EACH PO (11:06)
[2024-11-05] MEDS ORDERED: ACETAMINOPHEN325 M1 PO (11:06)
[2024-11-05] MEDS ORDERED: METOPROLOL TART50 MG PO (11:06)
[2024-11-05] MEDS ORDERED: TUMS200 MG PO (11:06)
[2024-11-05] MEDS ORDERED: COLACE100 M1 PO (11:06)
[2024-11-05] MEDS ORDERED: ONDANSETRON ODT4 MG PO (11:06)
[2024-11-05 11:21] VITALS: BP 144/75; PULSE 91; RESP 18; TEMP 98.9; O2SAT 100
[2024-11-05] MEDS: PNEUMOCOCCAL VACCINE POLYVALENT 23 MCG/0.5 ML VIAL IM SCH (12:01)
[2024-11-23] MEDS ORDERED: TUMS200 MG PO (17:39)
[2024-11-23] MEDS ORDERED: CEFUROXIME250 MG PO (17:39)
== END 2024-11-05 12:19 | disposition home health service (06) | DRG 669 ==
LOC: ER 10:55 → ERHOLD 13:13 → MED/SURG2 14:25
PROVIDERS: ADMIT Internal Medicine; ATTEND Internal Medicine
PROC: 4A133R1 Monitoring of Arterial Saturation, Peripheral, Percutaneous Approach (ICD-10-PCS; principal; 2024-10-19)
PROC: 0TBB8ZX Excision of Bladder, Via Natural or Artificial Opening Endoscopic, Diagnostic (ICD-10-PCS; 2024-10-25)
PROC: 30233N1 Transfusion of Nonautologous Red Blood Cells into Peripheral Vein, Percutaneous Approach (ICD-10-PCS; 2024-10-27)
DX: N39.0 Urinary tract infection, site not specified (principal); D62 Acute posthemorrhagic anemia; E87.20 Acidosis, unspecified; N17.9 Acute kidney failure, unspecified; E83.39 Other disorders of phosphorus metabolism; E83.51 Hypocalcemia; I12.9 Hypertensive chronic kidney disease with stage 1 through stage 4 chronic kidney disease, or unspecified chronic kidney disease; N18.9 Chronic kidney disease, unspecified; E78.5 Hyperlipidemia, unspecified; R31.0 Gross hematuria; E87.5 Hyperkalemia; E83.42 Hypomagnesemia; J45.909 Unspecified asthma, uncomplicated; K76.0 Fatty (change of) liver, not elsewhere classified; E87.6 Hypokalemia; D75.839 Thrombocytosis, unspecified; K21.9 Gastro-esophageal reflux disease without esophagitis; R19.5 Other fecal abnormalities; R53.81 Other malaise; R53.1 Weakness; F41.9 Anxiety disorder, unspecified; F32.A Depression, unspecified; M19.90 Unspecified osteoarthritis, unspecified site; Z90.49 Acquired absence of other specified parts of digestive tract; Z90.710 Acquired absence of both cervix and uterus; Z88.0 Allergy status to penicillin; Z82.49 Family history of ischemic heart disease and other diseases of the circulatory system
CPT/HCPCS: 36415; 36600; 51700; 74176; 76770; 80048; 80053; 80061; 80307; 81001; 82270; 82550; 82607; 82728; 82746; 82805; 83036; 83540; 83735; 84100; 84439; 84443; 84466; 84484; 85025; 85045; 86850; 86900; 86920; 87040; 87086; 88305; 88342; 90732; 94799; 99252; 99284; J0360; J1756; J2003; J2405; J2470; J3475; J3480; J7030; J7040; J7050; J7070; P9016

== ENCOUNTER 2025-03-21 12:44 | Emergency (ER) | payer MEDICARE ==
[~2025-03-21] VITALS: Ht 160 cm; Wt 66.2 kg
[~2025-03-21 12:44] MED LIST: ACETAMINOPHEN325 M1 PO; ALCLOMETASONE D15 GM TOP; ASPIRIN81 MG PO; CEFUROXIME250 MG PO; COLACE100 M1 PO; FOLIC ACID0.8 MG PO; IRON 100 PLUS1 EACH PO; KETOCONAZOLE15 GM TOP; LOSARTAN POTASS25 MG PO; METOPROLOL TAR100 MG PO; METOPROLOL TART50 MG PO; NAPROSYN500 MG PO; NEURONTIN300 MG PO; OMEPRAZOLE40 MG PO; ONDANSETRON ODT4 MG PO; RISPERIDONE0.5 MG PO; TRIAMCINOLONE A15 G1 TOP; TUMS200 MG PO
[2025-03-21 14:28] LABS: BASOPHILS % 0.2 % (0.0-1.0); EOSINOPHILS % 0.4 % (0.0-6.0); LYMPHOCYTES % 8.9 % (18.0-39.1); MONOCYTES % 8.1 % (4.4-11.3); NEUTROPHILS % 81.7 % (38.7-80.0); RED CELL DISTRIBUTION WIDTH 13.1 % (11.7-14.4)
[2025-03-21] MEDS ORDERED: METOPROLOL TART25 MG PO (14:35)
[2025-03-21] MEDS ORDERED: FOLIC ACID0.4 MG PO (14:37)
[2025-03-21 14:42] LABS: INR 1.02
[2025-03-21 14:51] LABS: EST GLOMERULAR FILTRATION RATE 53.0 ML/MIN (>=60)
[2025-03-21 14:55] LABS: LEUKOCYTE ESTERASE ,URINE LARGE (NEGATIVE)
[2025-03-21 14:56] LABS: PROTEIN,URINE DIPSTICK >=300 (NEGATIVE); URINE UROBILINOGEN 1 mg/dL (0.2 - 1)
[2025-03-21 15:01] LABS: WBC,URINE (MAN) >50 /HPF (0-5)
[2025-03-21 15:02] LABS: EPITHELIAL CELLS,URINE FEW /LPF; TRIPLE PHOSPHATE CRYSTAL,UR FEW
[2025-03-21] MEDS: SODIUM CHLORIDE 0.9% 1000ML 1,000 ML IV STA (15:40)
[2025-03-21] MEDS ORDERED: CEFDINIR300 MG PO (16:45)
[2025-03-21] MEDS: MAGNESIUM SULFATE 2GM/50ML 50 ML IV ONE (17:29)
[2025-03-21 18:00] VITALS: PULSE 86; RESP 14; TEMP 98.4
[2025-03-21 19:26] VITALS: BP 131/58; RESP 16; TEMP 98.2; O2SAT 97
== END 2025-03-21 19:15 | disposition home or self-care (01) ==
LOC: ER 13:30
DX: E83.42 Hypomagnesemia (principal); N39.0 Urinary tract infection, site not specified; R42 Dizziness and giddiness; I12.9 Hypertensive chronic kidney disease with stage 1 through stage 4 chronic kidney disease, or unspecified chronic kidney disease; N18.9 Chronic kidney disease, unspecified; D64.9 Anemia, unspecified; F41.9 Anxiety disorder, unspecified; F32.A Depression, unspecified; K21.9 Gastro-esophageal reflux disease without esophagitis; M19.09 Primary osteoarthritis, other specified site; G62.9 Polyneuropathy, unspecified; L40.9 Psoriasis, unspecified
CPT/HCPCS: 36415; 71045; 80053; 81001; 83735; 84484; 85025; 85610; 85730; 87086; 87186; 99284; J0696; J2470; J3475; J7030